=== PATIENT | female | born 1995 | race Caucasian/White ===

== ENCOUNTER 2018-08-08 12:07 | Emergency (ER) | payer MEDICAID ==
[~2018-08-08] VITALS: Ht 157.5 cm; Wt 95.3 kg
--- NOTE | 2018-08-08 12:30 | NUR ---
PT AMBULATES TO BED 4
[2018-08-08 12:35] VITALS: BP 94/66
--- NOTE | 2018-08-08 12:35 | NUR ---
22/F BIB GIRLFRIEND, C/O OF MEDIAL CHEST WALL PAIN X 1 MONTH, PAIN IS 5/10, INTERMITTENT REPORTS SHOUKDER PAIN RADIATING 2 WEEKS AGO. DENIES PAIN RADIATING AT THIS TIME, TINGLING, NUMBNESS, DIZZINESS, WEAKNESS, N/V/D, ABDOMINAL PAIN/ DISCOMFORT, CHILLS, SWEATS, OR FEVERS. PATIENT HAS HX OF ASTHMA AND ANXIETY. STATES THAT WHEN HER INHALER IS NOT PROVIDING RELIEF, STARTS TO PANIC AND GETS SOB. PATIENT HAD AN EKG DONE ON THE 07/26, NO FURTHER FINDINGS. LUNG SOUNDS ARE CLEAR THROUGH OUT, CAP REFILLS ARE <3 SECS, STRONG BILATERAL PULSES. PATIENT HAS CLEAR SPEECH, AOX4, STEADY GAIT, SAFETY PRECAUTIONS IN PLACE.
--- NOTE | 2018-08-08 13:04 | NUR ---
XRAY AT BEDSIDE.
[2018-08-08 13:28] VITALS: BP 92/56
--- NOTE | 2018-08-08 13:28 | NUR ---
Patient discharged with v/s stable. Written and verbal after care instructions given and explained. Patient alert, oriented and verbalized understanding of instructions. Ambulatory with steady gait. All questions addressed prior to discharge. ID band removed. Patient advised to follow up with PMD. Rx of MOTRIN AND ALBUTEROL given. Patient educated on indication of medication including possible reaction and side effects. Opportunity to ask questions provided and answered.
== END 2018-08-08 13:28 | disposition home or self-care (01) ==
LOC: MED 12:07
DX: M94.0 Chondrocostal junction syndrome [Tietze] (principal); J45.909 Unspecified asthma, uncomplicated
CPT/HCPCS: 71045; 93005; 99283

== ENCOUNTER 2018-08-16 09:21 | Emergency (ER) | payer MEDICAID ==
[~2018-08-16] VITALS: Ht 157.5 cm; Wt 115.7 kg
[2018-08-16 09:25] VITALS: BP 111/68
[2018-08-16] MEDS: PENICILLIN G BENZATHINE L-A 1.2 MU/2 ML SYR IM ONE (09:54)
[2018-08-16] MEDS: KETOROLAC 60 MG/2 ML VIAL IM ONE (09:55)
[2018-08-16 10:22] VITALS: BP 111/68
== END 2018-08-16 10:22 | disposition home or self-care (01) ==
LOC: MED 09:21
DX: J02.0 Streptococcal pharyngitis (principal); J45.909 Unspecified asthma, uncomplicated
CPT/HCPCS: 96372; 99283; J0561; J1885

== ENCOUNTER 2019-01-01 01:13 | Emergency (ER) | payer MEDICAID, OTHER ==
[~2019-01-01] VITALS: Ht 157.5 cm; Wt 125.2 kg
[2019-01-01 01:19] VITALS: BP 130/78
--- NOTE | 2019-01-01 01:23 | NUR ---
EKG COMPLETED AT THIS TIME OF TRIAGE. PT AMBULATED TO BED 9
[2019-01-01] MEDS ORDERED: KETOROLAC 60 MG/2 ML VIAL IM ONE (01:40)
--- NOTE | 2019-01-01 01:40 | NUR ---
PT CAME IN W/C/O MIDSTERNAL CHEST PAIN RADIATING TO THE L ARM SINCE EARLIER TODAY. PT ALSO C/O ASTHMA, SOB. PT STATES SHE WAS SEEN HERE A MONTH AGO FOR THE SAME THING. PT SPEAKING IN FULL SENTENCES. NAIL BEDS PINK IN COLOR. NAD NOTED. RR EVEN/UNLABORED. LUNGS CLEAR BILAT. GCS 15. HX: ASTHMA
[2019-01-01 02:10] VITALS: BP 129/75
== END 2019-01-01 02:11 | disposition home or self-care (01) ==
LOC: MED 01:13
DX: F41.9 Anxiety disorder, unspecified (principal); J45.909 Unspecified asthma, uncomplicated
CPT/HCPCS: 93005; 96372; 99283; J1885

== ENCOUNTER 2021-06-25 14:09 | Emergency (ER) | payer OTHER ==
[~2021-06-25] VITALS: Ht 157.5 cm; Wt 126.8 kg
[2021-06-25 14:16] VITALS: BP 155/93
--- NOTE | 2021-06-25 14:19 | NUR ---
PATIENT AMBULATED TO BED 9.
--- NOTE | 2021-06-25 14:30 | NUR ---
DR. MATHEW BEDSIDE EVALUATING PT
[2021-06-25] MEDS ORDERED: FAMOTIDINE 20 MG TAB PO ONE (14:40)
[2021-06-25] MEDS ORDERED: ALUMINUM HYD/MAG/SIMETHICONE 30 ML UDC PO ONE (14:40)
--- NOTE | 2021-06-25 14:43 | NUR ---
Ling snow in ED - 06/25/21 at 1446 by [email or web address] PT TAKEN TO XRAY VIA W/C
--- NOTE | 2021-06-25 14:45 | NUR ---
LAB BEDSIDE WITH PATIENT COLLECTING BLOOD WORK
--- NOTE | 2021-06-25 14:47 | NUR ---
PT TAKEN TO XRAY VIA W/C
--- NOTE | 2021-06-25 15:00 | NUR ---
PT RETURNED TO BED 9 FROM XRAY VIA W/C
[2021-06-25 15:09] LABS: BASOPHILS % (AUTO) 0.5 % (0.0-2.0); EOSINOPHILS # (AUTO) 0.1 K/uL (0-0.4); EOSINOPHILS % (AUTO) 0.9 % (0.0-4.0); HEMOGLOBIN 12.5 g/dL (12.0-16.0); LYMPHOCYTES # (AUTO) 2.5 K/uL (2.5-16.5); LYMPHOCYTES % (AUTO) 29.3 % (20.5-51.1); MEAN CORPUSCULAR HEMOGLOBIN 27 pg (27-31); MEAN CORPUSCULAR HGB CONC 34 g/dL (33-37); MEAN CORPUSCULAR VOLUME 81.1 fL (80-94); MONOCYTES # (AUTO) 0.6 K/uL (0.8-1.0); MONOCYTES % (AUTO) 7.4 % (1.7-9.3); NEUTROPHILS # (AUTO) 5.2 K/uL (1.8-7.7); NEUTROPHILS % (AUTO) 61.9 % (42.2-75.2); PLATELET COUNT (AUTO) 378 K/uL (140-450); RED BLOOD CELL COUNT(AUTO) 4.56 MIL/uL (4.20-5.40); RED CELL DISTRIBUTION WIDTH 14.6 % (11.6-13.7); WHITE BLOOD COUNT (AUTO) 8.4 K/uL (4.8-10.8)
--- NOTE | 2021-06-25 15:10 | NUR ---
PATIENT PRESENTS TO ED WITH CHEST PAIN. PT STATES THE PAIN STARTED YESTERDAY AND RADIATES TO LEFT ARM. DENIES N/V/D; SKIN IS PINK/WARM/DRY; AAOX4 WITH EVEN AND STEADY GAIT; HR EVEN AND REGULAR; PT DENIES ANY FEVER, SOB, OR COUGH AT THIS TIME; PATIENT STATES PAIN OF 6/10 AT THIS TIME; VSS; PATIENT POSITIONED FOR COMFORT; HOB ELEVATED; BEDRAILS UP X2; BED DOWN. ER MD MADE AWARE OF PT STATUS.
[2021-06-25 15:32] LABS: ALBUMIN 4.1 g/dL (3.4-5.0); ANION GAP 12.3 (8-16); CARBON DIOXIDE 29.7 mmol/L (21-32); CREATININE 0.6 mg/dL (0.6-1.3); TOTAL BILIRUBIN 0.9 mg/dL (0.0-1.0)
[2021-06-25] MEDS ORDERED: KETOROLAC 15 MG/ML VIAL IVP ONE ×2 (16:20→18:55)
[2021-06-25] MEDS ORDERED: KETOROLAC 30 MG/ML VIAL ONE ×2 (16:36→18:57)
--- NOTE | 2021-06-25 16:43 | NUR ---
US BEDSIDE WITH PATIENT
--- NOTE | 2021-06-25 17:22 | NUR ---
Patient appears to be resting comfortably in bed. Vital Signs within normal limits. Respirations even and unlabored.
--- NOTE | 2021-06-25 17:59 | NUR ---
Patient appears to be resting comfortably in bed. Vital Signs within normal limits. Respirations even and unlabored. PT GIVEN WATER AND A BLANKET FOR COMFORT.
[2021-06-25] MEDS ORDERED: FAMO-90 PO (18:40)
[2021-06-25] MEDS ORDERED: PANT20EC PO (18:40)
[2021-06-25] MEDS ORDERED: ALBU0.0912 IH (18:56)
[2021-06-25 19:01] LABS: APPEARANCE,URINE CLEAR (CLEAR); BILIRUBIN,URINE NEGATIVE (NEGATIVE); BLOOD, URINE NEGATIVE (NEGATIVE); COLOR,URINE YELLOW (YELLOW); LEUKOCYTE ESTERASE ,URINE NEGATIVE (NEGATIVE); NITRITE, URINE NEGATIVE (NEGATIVE); UGLUCOSE NEGATIVE (NEGATIVE)
[2021-06-25 19:13] VITALS: BP 118/81
--- NOTE | 2021-06-25 19:17 | NUR ---
Patient discharged with v/s stable. Written and verbal after care instructions given and explained. Patient alert, oriented and verbalized understanding of instructions. Ambulatory with steady gait. All questions addressed prior to discharge. ID band removed. Patient advised to follow up with PMD. Rx of ALBUTEROL SULFATE, FAMOTIDINE, AND PANTOPRAZOLE SODIUM given. Patient educated on indication of medication including possible reaction and side effects. Opportunity to ask questions provided and answered.
== END 2021-06-25 19:17 | disposition home or self-care (01) ==
LOC: MED 14:09
DX: K21.9 Gastro-esophageal reflux disease without esophagitis (principal); R79.89 Other specified abnormal findings of blood chemistry; R16.0 Hepatomegaly, not elsewhere classified; J45.909 Unspecified asthma, uncomplicated; Z79.899 Other long term (current) drug therapy
CPT/HCPCS: 36415; 71046; 76700; 80053; 81003; 81025; 82150; 83690; 84484; 85025; 93005; 96374; 96376; 99285; J1885; Q0092

== ENCOUNTER 2022-04-10 04:34 | Emergency (ER) | payer OTHER ==
[~2022-04-10] VITALS: Ht 157.5 cm; Wt 122.5 kg
[~2022-04-10 04:34] MED LIST: ALBU0.0912 IH; FAMO-90 PO; PANT20EC PO
[2022-04-10 04:38] VITALS: BP 134/81
--- NOTE | 2022-04-10 04:45 | NUR ---
TO LOBBY FOLLOWING TRIAGE
--- NOTE | 2022-04-10 05:28 | NUR ---
Dr. Sarkar examining patient.
[2022-04-10] MEDS ORDERED: NAPR-54 PO (05:37)
[2022-04-10] MEDS ORDERED: FLONAS NS (05:37)
[2022-04-10] MEDS ORDERED: ACET-10509 PO (05:37)
[2022-04-10] MEDS ORDERED: AMOX1TAB8 PO (05:37)
[2022-04-10] MEDS: DEXAMETHASONE 10 MG/ML VIAL PO ONE (05:47)
[2022-04-10] MEDS: KETOROLAC 30 MG/ML VIAL IM ONE (05:51)
[2022-04-10 06:11] VITALS: BP 128/81
--- NOTE | 2022-04-10 06:11 | NUR ---
Patient discharged with v/s stable. Written and verbal after care instructions given and explained. Patient alert, oriented and verbalized understanding of instructions. Ambulatory with steady gait. All questions addressed prior to discharge. ID band removed. Patient advised to follow up with PMD. Rx of Tylenol, Amox-clav, Flonase Nasal and Naprosyn given. Patient educated on indication of medication including possible reaction and side effects. Opportunity to ask questions provided and answered.
== END 2022-04-10 06:11 | disposition home or self-care (01) ==
LOC: MED 04:34
DX: J32.9 Chronic sinusitis, unspecified (principal); J45.909 Unspecified asthma, uncomplicated; Z79.899 Other long term (current) drug therapy; Z79.1 Long term (current) use of non-steroidal anti-inflammatories (NSAID); Z79.2 Long term (current) use of antibiotics
CPT/HCPCS: 96372; 99283; J1100; J1885